=== PATIENT | female | born 1980 | race African-American/Black ===

== ENCOUNTER 2016-11-09 15:50 | Emergency (ER) | payer SELFPAY ==
[~2016-11-09] VITALS: Ht 160 cm; Wt 65.0 kg
[~2016-11-09 15:50] MED LIST: CIPR500T4 PO
[2016-11-09 15:51] VITALS: BP 112/66; PULSE 96; RESP 20; TEMP 98.8; O2SAT 99
[2016-11-09] MEDS ORDERED: CYCL1TAB29 PO (16:23)
[2016-11-09] MEDS ORDERED: DICL75TA PO (16:23)
[2016-11-09] MEDS ORDERED: TRIA.1%T TOPICAL (16:23)
--- NOTE | 2016-11-09 16:28 | PD ---
HPI Chief Complaint: Back/ Neck Pain or Injury Time Seen by Provider: 16:23 Travel History International Travel<30 days: No Contact w/Intl Traveler<30days: No Traveled to known affect area: No History of Present Illness HPI 36-year-old black female presents to emergency department for evaluation of a slip and fall yesterday at [facility]. She states that she had slipped on some chicken on the floor causing her to fall down onto her buttocks. This had occurred sometime around 7:00 last evening. She states that she did not have significant pain at the time of the injury. She states that she's had progressive single lower back pain. She denies acute bowel or bladder changes. No focal numbness, tingling or weakness. Pain is worse with bending and movement. Some relief with remaining still. Pain is mild to moderate. She also states that she has psoriasis and would like to get something to treat her skin rash on her elbows. She denies any head injury. No neck or upper back pain. No acute bowel or bladder changes. PFSH Past Medical History Narrative Medical Psoriasis Arthritis: No Asthma: No Blood Disorders: No Heart Rhythm Problems: No Cancer: No Cardiovascular Problems: No High Cholesterol: No Chest Pain: No Congestive Heart Failure: No COPD: No Cerebrovascular Accident: No Diabetes: No Diminished Hearing: No Endocrine: No Genitourinary: No Immune Disorder: No Implanted Vascular Access Dvce: No Musculoskeletal: Yes Neurologic: No Psychiatric: No Reproductive: No Respiratory: No Immunizations Current: No Sleep Apnea: No Thyroid Disease: Yes Tetanus Vaccination: Unknown Influenza Vaccination: Yes ?: Not : 7 Para: 7 Tubal Ligation: Yes Past Surgical History Narrative Surgical Cholecystectomy, C-sections 7, tubal ligation Abdominal Surgery: Yes (C-SEC X 7) Cardiac Surgery: No Section: Yes (X 7) Cholecystectomy: Yes Ear Surgery: No Endocrine Surgery: No Eye Surgery: No Genitourinary Surgery: No Oral Surgery: No Pacemaker: No Thoracic Surgery: No Social History Alcohol Use: Yes (rarely ) Tobacco Use: Yes (1/2 PPD) Substance Use: No Allergies-Medications (Allergen,Severity, Reaction): Coded Allergies: No Known Allergies (Unverified , 09/23/15) Reported Meds & Prescriptions Reported Meds & Active Scripts Active No Active Prescriptions or Reported Medications Review of Systems Except as stated in HPI: all other systems reviewed are Neg Physical Exam Narrative GENERAL: Well-developed, well-nourished in no acute distress. Nontoxic appearing. The patient appears comfortable in examination room HEAD: Normocephalic, atraumatic. EYES: Pupils equal round and reactive. Extraocular motions intact. No scleral icterus. No injection or drainage. ENT: TMs clear without erythema. The external auditory canals clear. Nose: clear . Posterior pharynx is pink and moist. No tonsillar edema or exudate. Uvula midline. Airway patent. NECK: Trachea midline.Supple, nontender, moves head freely. No central bony tenderness or spasm. CARDIOVASCULAR: Regular rate and rhythm without murmurs, gallops, or rubs. RESPIRATORY: Clear to auscultation. Breath sounds equal bilaterally. No wheezes , rales, or rhonchi. GASTROINTESTINAL: Abdomen soft, non-tender, nondistended. No hepato-splenomegaly , or palpable masses. No guarding. EXTREMITIES: No clubbing, cyanosis, or edema. No joint tenderness, effusion, or edema noted. BACK: No central bony tenderness to palpation of dorsal lumbar spine. She complains of myofascial tenderness to her bilateral lower lumbar spine. No spasm. She is able to bend forward to 80. Heel and toe stand. No saddle anesthesia. Without deformity or crepitance. No flank tenderness. Skin: Patient has a scaly dermatitis consistent with psoriasis over her flexor creases of her elbows and a few scattered places on the lower extremities Data Data Last Documented VS Vital Signs Date Time Temp Pulse Resp B/P Pulse Ox O2 Delivery O2 Flow Rate FiO2 11/09/16 15:51 98.8 96 20 112/66 99 Room Air MDM Medical Decision Making Medical Screen Exam Complete: Yes Emergency Medical Condition: Yes Medical Record Reviewed: Yes Differential Diagnosis MDM: High Differential diagnoses: Fracture, sprain, strain, dislocation, contusion, neurovascular injury, psoriasis Narrative Course Patient had a slip and fall. I do not suspect any significant injury. She also requests medication for her psoriasis. She states that she does not have a primary care doctor. I do not believe x-rays are indicated at this time. I believe the NSAIDs and muscle relaxers prudent. Topical steroid for her psoriasis. Diagnosis Primary Impression: back sprain status post fall Additional Impression: Psoriasis Patient Instructions: General Instructions Additional Instructions: Rest. Ice for the next 3 days followed by heat . Flexeril and Voltaren. Prednisone. Follow-up with a primary care doctor in one week. Return to the ER for emergencies. Med/Other Pt SpecificInfo: Prescription(s) given Scripts Triamcinolone Topical 0.1% Cream1 Applic TOPICAL BID #30 GM Prov:Rafi Greer MD 11/09/16 Cyclobenzaprine (Flexeril)10 Mg Tab10 Mg PO TID #21 TAB Prov:Rafi Greer MD 11/09/[address] 75 Mg Tabdr75 Mg PO BID #20 TAB Prov:Rafi Greer MD 11/09/16 Disposition: 01 DISCHARGE HOME Condition: Stable Greg Duarte November 09, 2016 16:28
== END 2016-11-09 16:49 | disposition home or self-care (01) ==
LOC: NEPK 15:50
DX: S33.5XXA Sprain of ligaments of lumbar spine, initial encounter (principal); L40.9 Psoriasis, unspecified; W01.0XXA Fall on same level from slipping, tripping and stumbling without subsequent striking against object, initial encounter; Y92.512 Supermarket, store or market as the place of occurrence of the external cause
CPT/HCPCS: 99284

== ENCOUNTER 2017-03-01 02:41 | Emergency (ER) | payer SELFPAY ==
[~2017-03-01] VITALS: Ht 160 cm; Wt 70.0 kg
[~2017-03-01 02:41] MED LIST changes: -CIPR500T4 PO; +CYCL1TAB29 PO; +DICL75TA PO; +TRIA.1%T TOPICAL
[2017-03-01 02:44] VITALS: BP 112/66; PULSE 77; RESP 16; TEMP 98.4; O2SAT 99
[2017-03-01] MEDS ORDERED: DIPR0.053 TOPICAL (03:42)
--- NOTE | 2017-03-01 03:46 | PD ---
HPI Chief Complaint: Skin Problem Time Seen by Provider: 03:33 Travel History International Travel<30 days: No Contact w/Intl Traveler<30days: No Traveled to known affect area: No History of Present Illness HPI 36-year-old black female presents to emergency Department with complaints of exacerbation of her psoriasis. She's had increasing plaques develop on her elbows, and lower legs. She also has lesions developing in her scalp and inner ears. Symptoms are moderate. She denies any fever chills. No discharge. No alleviating factors. No exacerbating factor. PFSH Past Medical History Narrative Medical Psoriasis Arthritis: No Asthma: No Blood Disorders: No Heart Rhythm Problems: No Cancer: No Cardiovascular Problems: No High Cholesterol: No Chest Pain: No Congestive Heart Failure: No COPD: No Cerebrovascular Accident: No Diabetes: No Diminished Hearing: No Endocrine: No Genitourinary: No Immune Disorder: No Implanted Vascular Access Dvce: No Musculoskeletal: Yes Neurologic: No Psychiatric: No Reproductive: No Respiratory: No Integumentary: Yes (PAST YEAR STARTED MARCEL ELBOWS REST PAST MONTH) Immunizations Current: No Sleep Apnea: No Thyroid Disease: Yes Tetanus Vaccination: > 5 Years Influenza Vaccination: No ?: Not LMP: 02/09 : 7 Para: 7 Tubal Ligation: Yes Past Surgical History Abdominal Surgery: Yes (C-SEC X 7) Cardiac Surgery: No Section: Yes (X 7) Cholecystectomy: Yes Ear Surgery: No Endocrine Surgery: No Eye Surgery: No Genitourinary Surgery: No Oral Surgery: No Pacemaker: No Thoracic Surgery: No Social History Alcohol Use: Yes (rarely ) Tobacco Use: Yes (1/2 PPD) Substance Use: No Allergies-Medications (Allergen,Severity, Reaction): Coded Allergies: No Known Allergies (Unverified , 09/23/15) Reported Meds & Prescriptions Reported Meds & Active Scripts Active Diprolene Topical (Betamethasone Dipropionate Aug Topical) 0.05% Oint 1 Applic TOPICAL DAILY Review of Systems Except as stated in HPI: all other systems reviewed are Neg Physical Exam Narrative GENERAL: This is a well-nourished, well-developed patient, in no apparent distress. SKIN: Patient has scaly dermatitis to the flexor creases of the elbows as well as a few scattered lesions on the lower legs., ecchymoses or lesions. Warm and dry. HEAD: Atraumatic. Normocephalic. EYES: PERRL, EOMI, no discharge or injection. No scleral icterus. EARS: Clear NOSE: Nasal turbinates appear normal. THROAT: Mucosa pink and moist. Airway patent. NECK: Trachea midline. supple, moves head freely. LUNGS: Clear to auscultation. CV: Regular in rhythm. ABDOMEN: Soft nontender. EXT: No clubbing cyanosis or edema. Data Data Last Documented VS Vital Signs Date Time Temp Pulse Resp B/P (MAP) Pulse Ox O2 Delivery O2 Flow Rate FiO2 03/01/17 02:44 98.4 77 16 112/66 (81) 99 Room Air MDM Medical Decision Making Medical Screen Exam Complete: Yes Emergency Medical Condition: Yes Medical Record Reviewed: Yes Differential Diagnosis Differential diagnosis: Lupus, discoid lupus, psoriasis Narrative Course This is psoriasis Diagnosis Primary Impression: Psoriasis Patient Instructions: General Instructions Additional Instructions: Rest. Medications as directed. Follow-up with a medical doctor in one week. Med/Other Pt SpecificInfo: Prescription(s) given Scripts Betamethasone Dipropionate Aug Topical (Diprolene Topical) 0.05% Oint 1 APPLIC TOPICAL DAILY for Dermatoses, #15 GM 1 Refill Prov: Janny Samuel MD 03/01/17 Disposition: 01 DISCHARGE HOME Condition: Stable Greg Duarte Mar 01, 2017 03:46
== END 2017-03-01 03:52 | disposition home or self-care (01) ==
LOC: NEPD 02:41
DX: L40.9 Psoriasis, unspecified (principal); E07.9 Disorder of thyroid, unspecified; F17.200 Nicotine dependence, unspecified, uncomplicated
CPT/HCPCS: 99283

== ENCOUNTER 2017-03-07 00:30 | Emergency (ER) | payer SELFPAY ==
[~2017-03-07] VITALS: Ht 160 cm; Wt 71.5 kg
[~2017-03-07 00:30] MED LIST changes: -CYCL1TAB29 PO; -DICL75TA PO; +DIPR0.053 TOPICAL; -TRIA.1%T TOPICAL
[2017-03-07 00:32] VITALS: BP 114/55; PULSE 80; RESP 16; TEMP 98.4; O2SAT 98
[2017-03-07] MEDS ORDERED: SODIUM CHLOR 0.9% 1000 ML INJ 1,000 ML IV SCH (00:40)
[2017-03-07] MEDS ORDERED: SODIUM CHLORIDE 0.9% FLUSH 10 ML FLUSH IV FLUSH PRN (00:45)
[2017-03-07 00:55] LABS: AUTOMATED NEUTROPHIL # 6.6 TH/MM3 (1.8-7.7); BASOPHIL # 0.1 TH/MM3 (0-0.2); BASOPHIL % 0.8 % (0.0-2.0); EOSINOPHIL # 0.2 TH/MM3 (0-0.4); EOSINOPHIL % 1.8 % (0.0-4.0); HEMATOCRIT 37.9 % (35.0-46.0); HEMO FLAGS DIFF FINAL; LYMPHOCYTE # 3.5 TH/MM3 (1.0-4.8); MEAN CELL VOLUME 87.5 FL (80.0-100.0); MEAN CORPUSCULAR HEMOGLOBIN 28.8 PG (27.0-34.0); MEAN CORPUSCULAR HGB CONC 32.9 % (32.0-36.0); MONO % 4.9 % (0.0-8.0); NEUT % 60.5 % (16.0-70.0); PLATELET COUNT 263 TH/MM3 (150-450); RED BLOOD COUNT 4.32 MIL/MM3 (4.00-5.30); RED CELL DISTRIBUTION WIDTH 13.6 % (11.6-17.2); WHITE BLOOD COUNT 10.9 TH/MM3 (4.0-11.0)
[2017-03-07 00:57] LABS: BACTERIA, URINE RARE /hpf; BLOOD, URINE SMALL (NEG); COMMENT (UR) CULTURE INDICATED; CULTURE IF INDICATED CULTURE INDICATED; GLUCOSE,URINE NEG (NEG); KETONE, URINE NEG (NEG); MUCUS URINE FEW /lpf (OCC); NITRITE,URINE POS (NEG); PH, URINE 6.5 (5.0-8.5); SQUAMOUS EPITHELIAL CELL URINE 2 /hpf (0-5); URINE COLOR YELLOW (YELLW/STRAW)
--- NOTE | 2017-03-07 01:01 | PD ---
HPI Chief Complaint: Flank/Kidney Pain Time Seen by Provider: 00:39 Travel History International Travel<30 days: No Contact w/Intl Traveler<30days: No Traveled to known affect area: No History of Present Illness HPI Patient is a 36 year old female who presents to the ER with c/o of left sided flank pain with dysuria and urinary urgency and frequency. Patient reports that symptoms have been ongoing for the past 2 months, she has tried using home remedies with no relief of symptoms. Patient reports that today, she began to have left sided kidney pain and was concerned that she needed antibiotics at this time. Patient with no fever/chills. Denies abdominal pain. NO other c/o. PFSH Past Medical History Arthritis: No Asthma: No Blood Disorders: No Heart Rhythm Problems: No Cancer: No Cardiovascular Problems: No High Cholesterol: No Chest Pain: No Congestive Heart Failure: No COPD: No Cerebrovascular Accident: No Diabetes: No Diminished Hearing: No Endocrine: No Genitourinary: No Immune Disorder: No Implanted Vascular Access Dvce: No Musculoskeletal: Yes Neurologic: No Psychiatric: No Reproductive: No Respiratory: No Integumentary: Yes Immunizations Current: No Sleep Apnea: No Thyroid Disease: Yes Tetanus Vaccination: Unknown Influenza Vaccination: Yes ?: Not : 7 Para: 7 Tubal Ligation: Yes Past Surgical History Abdominal Surgery: Yes (C-SEC X 7) Cardiac Surgery: No Section: Yes (X 7) Cholecystectomy: Yes Ear Surgery: No Endocrine Surgery: No Eye Surgery: No Genitourinary Surgery: No Oral Surgery: No Pacemaker: No Thoracic Surgery: No Social History Alcohol Use: Yes (rarely ) Tobacco Use: Yes (1/2 PPD) Substance Use: No Allergies-Medications (Allergen,Severity, Reaction): Coded Allergies: No Known Allergies (Unverified , 03/07/17) Reported Meds & Prescriptions Reported Meds & Active Scripts Active Levaquin (Levofloxacin) 750 Mg Tablet 750 Mg PO DAILY 5 Days Pyridium (Phenazopyridine HCl) 100 Mg Tab 100 Mg PO Q8H PRN 3 Days Diprolene Topical (Betamethasone Dipropionate Aug Topical) 0.05% Oint 1 Applic TOPICAL DAILY Review of Systems General / Constitutional: No: Fever Eyes: No: Visual changes HENT: No: Headaches Cardiovascular: No: Chest Pain or Discomfort Respiratory: No: Shortness of Breath Gastrointestinal: No: Abdominal Pain Genitourinary: Positive: Urgency, Frequency, Dysuria, No: Discharge, Vaginal Bleeding Musculoskeletal: No: Pain Skin: No Rash Neurologic: No: Weakness Psychiatric: No: Depression Endocrine: No: Polydipsia Hematologic/Lymphatic: No: Easy Bruising Physical Exam Narrative GENERAL: NAD SKIN: Focused skin assessment warm/dry. HEAD: Atraumatic. Normocephalic. EYES: Pupils equal and round. No scleral icterus. No injection or drainage. ENT: No nasal bleeding or discharge. Mucous membranes pink and moist. NECK: Trachea midline. No JVD. CARDIOVASCULAR: Regular rate and rhythm. No murmur appreciated. RESPIRATORY: No accessory muscle use. Clear to auscultation. Breath sounds equal bilaterally. GASTROINTESTINAL: Abdomen soft, non-tender, nondistended. Hepatic and splenic margins not palpable. MUSCULOSKELETAL: No obvious deformities. No clubbing. No cyanosis. No edema. Left sided flank pain NEUROLOGICAL: Awake and alert. No obvious cranial nerve deficits. Motor grossly within normal limits. Normal speech. PSYCHIATRIC: Appropriate mood and affect; insight and judgment normal. Data Data Last Documented VS Vital Signs Date Time Temp Pulse Resp B/P (MAP) Pulse Ox O2 Delivery O2 Flow Rate FiO2 03/07/17 01:36 72 16 112/67 (82) 99 Room Air 03/07/17 00:32 98.4 Orders Orders Complete Blood Count With Diff (03/07/17 00:40) Comprehensive Metabolic Panel (03/07/17 00:40) Urinalysis - C+S If Indicated (03/07/17 00:40) Iv Access Insert/Monitor (03/07/17 00:40) Sodium Chlor 0.9% 1000 Ml Inj (Ns 1000 M (03/07/17 00:40) Sodium Chloride 0.9% Flush (Ns Flush) (03/07/17 00:45) Ed Urine Pregnancytest Poc (03/07/17 00:40) Urine Culture (03/07/17 00:45) Ceftriaxone Inj (Rocephin Inj) (03/07/17 01:15) Ketorolac Inj (Toradol Inj) (03/07/17 01:45) Labs Laboratory Tests Test 03/07/17 00:45 White Blood Count 10.9 TH/MM3 Red Blood Count 4.32 MIL/MM3 Hemoglobin 12.5 GM/DL Hematocrit 37.9 % Mean Corpuscular Volume 87.5 FL Mean Corpuscular Hemoglobin 28.8 PG Mean Corpuscular Hemoglobin Concent 32.9 % Red Cell Distribution Width 13.6 % Platelet Count 263 TH/MM3 Mean Platelet Volume 7.0 FL Neutrophils (%) (Auto) 60.5 % Lymphocytes (%) (Auto) 32.0 % Monocytes (%) (Auto) 4.9 % Eosinophils (%) (Auto) 1.8 % Basophils (%) (Auto) 0.8 % Neutrophils # (Auto) 6.6 TH/MM3 Lymphocytes # (Auto) 3.5 TH/MM3 Monocytes # (Auto) 0.5 TH/MM3 Eosinophils # (Auto) 0.2 TH/MM3 Basophils # (Auto) 0.1 TH/MM3 CBC Comment DIFF FINAL Differential Comment Urine Color YELLOW Urine Turbidity CLEAR Urine pH 6.5 Urine Specific [place] 1.022 Urine Protein NEG mg/dL Urine Glucose (UA) NEG mg/dL Urine Ketones NEG mg/dL Urine Occult Blood SMALL Urine Nitrite POS Urine Bilirubin NEG Urine Urobilinogen LESS THAN 2.0 MG/DL Urine Leukocyte Esterase TRACE Urine RBC 6 /hpf Urine WBC 3 /hpf Urine Squamous Epithelial Cells 2 /hpf Urine Bacteria RARE /hpf Urine Mucus FEW /lpf Microscopic Urinalysis Comment CULTURE INDICATED Blood Urea Nitrogen 14 MG/DL Creatinine 0.91 MG/DL Random Glucose 85 MG/DL Total Protein 7.6 GM/DL Albumin 3.7 GM/DL Calcium Level 8.6 MG/DL Alkaline Phosphatase 79 U/L Aspartate Amino Transf (AST/SGOT) 14 U/L Alanine Aminotransferase (ALT/SGPT) 22 U/L Total Bilirubin 0.2 MG/DL Sodium Level 137 MEQ/L Potassium Level 4.3 MEQ/L Chloride Level 106 MEQ/L Carbon Dioxide Level 23.9 MEQ/L Anion Gap 7 MEQ/L Estimat Glomerular Filtration Rate 84 ML/MIN [facility] Medical Decision Making Medical Screen Exam Complete: Yes Emergency Medical Condition: Yes Interpretation(s) Vital Signs Date Time Temp Pulse Resp B/P (MAP) Pulse Ox O2 Delivery O2 Flow Rate FiO2 03/07/17 00:32 98.4 80 16 114/55 (47) 98 Differential Diagnosis Differential includes pyelonephritis, kidney stone, electrolyte abnormality Narrative Course Patient is a 36 year old female who presents to the emergency room with complaints of dysuria, urinary urgency frequency for the past 2 months. Patient now has left-sided flank pain, patient with no fevers or chills, nausea or vomiting. UA ordered as well as blood work. Vital Signs Date Time Temp Pulse Resp B/P (MAP) Pulse Ox O2 Delivery O2 Flow Rate FiO2 03/07/17 00:32 98.4 80 16 114/55 (74) 98 CBC & BMP Diagram 03/07/17 00:45 Laboratory Tests Test 03/07/17 00:45 White Blood Count 10.9 TH/MM3 (4.0-11.0) Red Blood Count 4.32 MIL/MM3 (4.00-5.30) Hemoglobin 12.5 GM/DL (11.6-15.3) Hematocrit 37.9 % (35.0-46.0) Mean Corpuscular Volume 87.5 FL (80.0-100.0) Mean Corpuscular Hemoglobin 28.8 PG (27.0-34.0) Mean Corpuscular Hemoglobin Concent 32.9 % (32.0-36.0) Red Cell Distribution Width 13.6 % (11.6-17.2) Platelet Count 263 TH/MM3 (150-450) Mean Platelet Volume 7.0 FL (7.0-11.0) Neutrophils (%) (Auto) 60.5 % (16.0-70.0) Lymphocytes (%) (Auto) 32.0 % (9.0-44.0) Monocytes (%) (Auto) 4.9 % (0.0-8.0) Eosinophils (%) (Auto) 1.8 % (0.0-4.0) Basophils (%) (Auto) 0.8 % (0.0-2.0) Neutrophils # (Auto) 6.6 TH/MM3 (1.8-7.7) Lymphocytes # (Auto) 3.5 TH/MM3 (1.0-4.8) Monocytes # (Auto) 0.5 TH/MM3 (0-0.9) Eosinophils # (Auto) 0.2 TH/MM3 (0-0.4) Basophils # (Auto) 0.1 TH/MM3 (0-0.2) CBC Comment DIFF FINAL Differential Comment Urine Color YELLOW (YELLW/STRAW) Urine Turbidity CLEAR (CLEAR) Urine pH 6.5 (5.0-8.5) Urine Specific [place] 1.022 (1.002-1.035) Urine Protein NEG mg/dL (NEG-TRACE) Urine Glucose (UA) NEG mg/dL (NEG) Urine Ketones NEG mg/dL (NEG) Urine Occult Blood SMALL (NEG) Urine Nitrite POS (NEG) Urine Bilirubin NEG (NEG) Urine Urobilinogen LESS THAN 2.0 MG/DL (LESS Urine Leukocyte Esterase TRACE (NEG) Urine RBC 6 /hpf (0-3) Urine WBC 3 /hpf (0-5) Urine Squamous Epithelial Cells 2 /hpf (0-5) Urine Bacteria RARE /hpf (NONE) Urine Mucus FEW /lpf (OCC) Microscopic Urinalysis Comment CULTURE INDICATED Blood Urea Nitrogen 14 MG/DL (7-18) Creatinine 0.91 MG/DL (0.50-1.00) Random Glucose 85 MG/DL (74-106) Total Protein 7.6 GM/DL (6.4-8.2) Albumin 3.7 GM/DL (3.4-5.0) Calcium Level 8.6 MG/DL (8.5-10.1) Alkaline Phosphatase 79 U/L (45-117) Aspartate Amino Transf (AST/SGOT) 14 U/L (15-37) Alanine Aminotransferase (ALT/SGPT) 22 U/L (10-53) Total Bilirubin 0.2 MG/DL (0.2-1.0) Sodium Level 137 MEQ/L (136-145) Potassium Level 4.3 MEQ/L (3.5-5.1) Chloride Level 106 MEQ/L (98-107) Carbon Dioxide Level 23.9 MEQ/L (21.0-32.0) Anion Gap 7 MEQ/L (5-15) Estimat Glomerular Filtration Rate 84 ML/MIN (>89) Patient with most likely pyelonephritis. patient will follow up with UC from today. She was given a dose of IV antibiotics. She will follow up with pcp and will return to ER as needed Diagnosis Primary Impression: Pyelonephritis Patient Instructions: General Instructions Additional Instructions: Please take all medications as prescribed Return to ER if symptoms worsen or persist Return to ER as needed Please follow up with your primary care doctor Med/Other Pt SpecificInfo: Prescription(s) given Scripts Levofloxacin (Levaquin) 750 Mg Tablet 750 MG PO DAILY for Infection for 5 Days, #5 TAB 0 Refills Prov: Lauren Jackman DO 03/07/17 Phenazopyridine (Pyridium) 100 Mg Tab 100 MG PO Q8H Y for DYSURIA for 3 Days, #9 TAB 0 Refills Prov: Lauren Jackman DO 03/07/17 Disposition: 01 DISCHARGE HOME Condition: Stable Lauren Jackman DO Mar 07, 2017 01:01
[2017-03-07 01:06] LABS: ALT (GPT) 22 U/L (10-53); ANION GAP 7 MEQ/L (5-15); AST (GOT) 14 U/L (15-37); BICARBONATE 23.9 MEQ/L (21.0-32.0); BLOOD UREA NITROGEN 14 MG/DL (7-18); CHLORIDE 106 MEQ/L (98-107); GLOMERULAR FILTRATION RATE 84 ML/MIN (>89); POTASSIUM 4.3 MEQ/L (3.5-5.1); SODIUM (NA) 137 MEQ/L (136-145)
[2017-03-07 01:09] LABS: ALKALINE PHOSPHATASE 79 U/L (45-117); TOTAL BILIRUBIN ADULT 0.2 MG/DL (0.2-1.0)
[2017-03-07] MEDS ORDERED: cefTRIAXone INJ 1,000 MG in SODIUM CHLORIDE 0.9% INJ 100 ML IV ONE (01:15)
[2017-03-07] MEDS ORDERED: LEVA750T9 PO (01:24)
[2017-03-07] MEDS ORDERED: PHEN0.4T PO (01:24)
[2017-03-07 01:36] VITALS: BP 112/67; PULSE 72; RESP 16; O2SAT 99
[2017-03-07] MEDS ORDERED: KETOROLAC TROMETHAMINE 30 MG/ML (IVP) VIAL IV PUSH ONE (01:45)
== END 2017-03-07 02:28 | disposition home or self-care (01) ==
LOC: NEPC 00:30
DX: N12 Tubulo-interstitial nephritis, not specified as acute or chronic (principal); B96.20 Unspecified Escherichia coli [E. coli] as the cause of diseases classified elsewhere; F17.200 Nicotine dependence, unspecified, uncomplicated
CPT/HCPCS: 80053; 81001; 84703; 85025; 87077; 87086; 87186; 96361; 96365; 96375; 99284; J0696; J1885; J7030

== ENCOUNTER 2017-04-30 10:16 | Emergency (ER) | payer SELFPAY ==
[~2017-04-30] VITALS: Ht 160 cm; Wt 71.2 kg
[~2017-04-30 10:16] MED LIST changes: +LEVA750T9 PO; +PHEN0.4T PO
[2017-04-30 10:21] VITALS: BP 104/62; PULSE 86; RESP 15; TEMP 97.6; O2SAT 99
--- NOTE | 2017-04-30 10:41 | PD ---
HPI Chief Complaint: Skin Problem Time Seen by Provider: 10:38 Travel History International Travel<30 days: No Contact w/Intl Traveler<30days: No Traveled to known affect area: No History of Present Illness HPI This patient was examined in the presence of a female nurse at all times. 36- year-old female presents for evaluation of pruritic, dry and scaly skin on the extensor surfaces of her ankles, elbows as well as on her posterior scalp. Symptoms started several months ago. She was diagnosed with psoriasis. She was prescribed a topical steroid cream back in February of this year which seemed to help however the rash has persisted which prompted evaluation. She has not yet followed up with a primary care physician or rubber and pounder in regards to this rash. No other complaints. History Past Medical Histgory Hx Cancer: No Social History Alcohol Use: Yes (rarely ) Tobacco Use: Yes (1/2 PPD) Allergies-Medications (Allergen,Severity, Reaction): Coded Allergies: No Known Allergies (Unverified Adverse Reaction, Unknown, 04/30/17) Reported Meds & Prescriptions Reported Meds & Active Scripts Active Levaquin (Levofloxacin) 750 Mg Tablet 750 Mg PO DAILY 5 Days Pyridium (Phenazopyridine HCl) 100 Mg Tab 100 Mg PO Q8H PRN 3 Days Diprolene Topical (Betamethasone Dipropionate Aug Topical) 0.05% Oint 1 Applic TOPICAL DAILY Review of Systems General / Constitutional: No: Fever, Chills Skin: Positive Rash, Positive Itching, Positive Dryness Physical Exam Narrative GENERAL: Well-developed well-nourished female in no acute distress SKIN: Warm and dry. Dry flaky skin noted on the extensor surfaces of the elbows , ankles, occipital scalp. HEAD: Atraumatic. Normocephalic. EYES: Pupils equal and round. No scleral icterus. No injection or drainage. ENT: No nasal bleeding or discharge. Mucous membranes pink and moist. NECK: Trachea midline. No JVD. CARDIOVASCULAR: Regular rate and rhythm. No murmur appreciated. RESPIRATORY: No accessory muscle use. Clear to auscultation. Breath sounds equal bilaterally. Data Data Last Documented VS Vital Signs Date Time Temp Pulse Resp B/P (MAP) Pulse Ox O2 Delivery O2 Flow Rate FiO2 04/30/17 10:21 97.6 86 15 104/62 (76) 99 MDM Medical Screen Exam Complete: Yes Emergency Medical Condition: No Narrative Course Ideally this patient to follow up with a primary care physician or rubber and pounder for continuing management of her psoriasis. A medical screening exam was performed: At the time of evaluation the presenting medical condition was determined not to be of an emergent nature. The patient was given the option of receiving additional care, but declined. Patient was given options for additional community resources from which to obtain care. The Patient Has Been advised to seek medical attention for their presenting complaint. The patient has been advised to return to the ER at any time if an emergent condition develops. Primary Impression: Encounter for medical screening examination Alvarez Li Apr 30, 2017 10:40
== END 2017-04-30 10:48 | disposition left against medical advice (07) ==
LOC: PHEFT 10:16
DX: L40.9 Psoriasis, unspecified (principal)
CPT/HCPCS: 99281

== ENCOUNTER 2017-07-18 16:55 | Emergency (ER) | payer OTHER ==
[~2017-07-18] VITALS: Ht 160 cm; Wt 71.5 kg
[2017-07-18 17:11] VITALS: BP 114/69; PULSE 100; RESP 20; TEMP 100.1; O2SAT 97
[2017-07-18] MEDS ORDERED: IBUPROFEN 800 MG TAB PO ONE (17:30)
[2017-07-18 19:46] VITALS: TEMP 99.2
[2017-07-18] MEDS ORDERED: HUMI40KI SQ (19:49)
[2017-07-18] MEDS ORDERED: PENI500T PO (19:51)
--- NOTE | 2017-07-18 19:51 | PD ---
HPI Chief Complaint: Cold / Flu Symptoms Time Seen by Provider: 19:41 Travel History International Travel<30 days: No Contact w/Intl Traveler<30days: No Traveled to known affect area: No History of Present Illness HPI This is a 36-year-old female here with sore throat and fever 4 days. She reports pain with swallowing. No difficulty eating, drinking, swallowing secretions. No change of voice. Symptom severity is moderate. No aggravating or alleviating factors. PFSH Past Medical History Arthritis: No Asthma: No Blood Disorders: No Heart Rhythm Problems: No Cancer: No Cardiovascular Problems: No High Cholesterol: No Chest Pain: No Congestive Heart Failure: No COPD: No Cerebrovascular Accident: No Diabetes: No Diminished Hearing: No Endocrine: No Genitourinary: No Immune Disorder: No Implanted Vascular Access Dvce: No Musculoskeletal: Yes Neurologic: No Psychiatric: No Reproductive: No Respiratory: No Integumentary: Yes (PSORIASIS) Immunizations Current: No Sleep Apnea: No Thyroid Disease: Yes ?: Not LMP: 06/28/17 : 7 Para: 7 Tubal Ligation: Yes Past Surgical History Abdominal Surgery: Yes (C-SEC X 7) Cardiac Surgery: No Section: Yes (X 7) Cholecystectomy: Yes Ear Surgery: No Endocrine Surgery: No Eye Surgery: No Genitourinary Surgery: No Oral Surgery: No Pacemaker: No Thoracic Surgery: No Social History Alcohol Use: No Tobacco Use: Yes (1/2 PPD) Substance Use: No Allergies-Medications (Allergen,Severity, Reaction): Coded Allergies: No Known Allergies (Unverified Adverse Reaction, Unknown, 04/30/17) Reported Meds & Prescriptions Reported Meds & Active Scripts Active Levaquin (Levofloxacin) 750 Mg Tablet 750 Mg PO DAILY 5 Days Pyridium (Phenazopyridine HCl) 100 Mg Tab 100 Mg PO Q8H PRN 3 Days Diprolene Topical (Betamethasone Dipropionate Aug Topical) 0.05% Oint 1 Applic TOPICAL DAILY Review of Systems Except as stated in HPI: all other systems reviewed are Neg General / Constitutional: Positive: Fever Eyes: No: Visual changes HENT: Positive: Sore Throat Respiratory: No: Shortness of Breath Gastrointestinal: No: Abdominal Pain Physical Exam Narrative GENERAL: Alert and well-appearing 36-year-old female SKIN: Warm and dry. No rash HEAD: Normocephalic. EYES: No injection or drainage. Ear/nose/throat: Clear nasal discharge. Moderate pharyngeal erythema with tonsillar hypertrophy and exudate. Is midline. Airway is patent. NECK: Supple. CARDIOVASCULAR: Regular rate and rhythm . RESPIRATORY: Breath sounds equal bilaterally. No accessory muscle use. Data Data Last Documented VS Vital Signs Date Time Temp Pulse Resp B/P (MAP) Pulse Ox O2 Delivery O2 Flow Rate FiO2 07/18/17 17:11 100.1 100 20 114/69 (84) 97 Room Air Orders Orders Group A Rapid Strep Screen (07/18/17 17:27) Influenzae A/B Antigen (07/18/17 17:27) Ibuprofen (Motrin) (07/18/17 17:30) Strep Culture (Group A) (07/18/17 17:55) MDM Medical Decision Making Medical Screen Exam Complete: Yes Emergency Medical Condition: Yes Differential Diagnosis Strep pharyngitis, viral pharyngitis, influenza Narrative Course This is a 36-year-old female here with sore throat and fever 4 days. Her airway is patent. She has exudative tonsillitis. Strep screen was negative I strongly suspect this is strep. She'll be treated with penicillin Diagnosis Primary Impression: Pharyngitis Qualified Codes: J02.9 - Acute pharyngitis, unspecified Referrals: Primary Care Physician Additional Instructions: Tylenol and ibuprofen as needed for fever and pain. Stable hydrated by drinking plenty fluids. Antibiotics as prescribed. Scripts Penicillin V Potassium (Penicillin V Potassium) 500 Mg Tab 500 MG PO BID for Infection for 10 Days, #20 TAB 0 Refills Prov: Della Martin 07/18/17 Disposition: 01 DISCHARGE HOME Condition: Stable Della Martin Jul 18, 2017 19:51
== END 2017-07-18 19:58 | disposition home or self-care (01) ==
LOC: NEPK 16:55
DX: J02.9 Acute pharyngitis, unspecified (principal); F17.200 Nicotine dependence, unspecified, uncomplicated
CPT/HCPCS: 86403; 87081; 87804; 87880; 99283